=== PATIENT | male | born 2000 | race Two or more races ===

== ENCOUNTER 2024-03-23 19:18 | Emergency (ER) | payer OTHER ==
[~2024-03-23] VITALS: Ht 167.6 cm; Wt 74.5 kg
[2024-03-23 19:19] VITALS: BP 116/68; PULSE 70; RESP 20; O2SAT 98
[2024-03-23] MEDS: FLUORESCEIN SOD OPTH TEST STRIP LEFTEYE ONE (21:47)
[2024-03-23] MEDS: SODIUM CHLORIDE 0.9% 1,000 ML IV ONE (21:48)
[2024-03-23] MEDS: TETRACAINE HCL 0.5% OPTH(EYE) SOLN 4ML LEFTEYE ONE (21:48)
[2024-03-23] MEDS ORDERED: ERY05OO OP (22:13)
== END 2024-03-23 22:43 | disposition home or self-care (01) ==
LOC: ER 19:18
DX: T15.92XA Foreign body on external eye, part unspecified, left eye, initial encounter (principal); Z79.899 Other long term (current) drug therapy; X58.XXXA Exposure to other specified factors, initial encounter; Y93.89 Activity, other specified; Y92.89 Other specified places as the place of occurrence of the external cause; Y99.0 Civilian activity done for income or pay
CPT/HCPCS: 96360; 99284; J7030